=== PATIENT | female | born 1950 | race Caucasian/White ===

== ENCOUNTER → 2019-09-07 | Day surgery (SDC) | payer MEDICARE ==
[2019-09-02 11:45] LABS: BASOPHILS # (AUTO) 0.1 (0.0-0.1); EOSINOPHILS # (AUTO) 0.3 (0.0-0.4); EOSINOPHILS % 5.6 % (0.0-6.0); HEMATOCRIT 34.7 % (34.2-44.1); HEMOGLOBIN 10.7 g/dL (12.0-16.0); LYMPHOCYTES # (AUTO) 1.4 (1.0-3.2); LYMPHOCYTES % 27.4 % (18.0-39.1); MEAN CORPUSCULAR HEMOGLOBIN 24.8 pg (28-32); MEAN CORPUSCULAR HGB CONC 30.8 g/dL (31-35); MEAN CORPUSCULAR VOLUME 80.3 fL (81-99); MONOCYTES # (AUTO) 0.4 (0.2-0.8); MONOCYTES % 8.4 % (4.4-11.3); NEUTROPHILS # (AUTO) 2.9 (2.1-6.9); PLATELET COUNT 274 x10e3/uL (140-360); RED BLOOD COUNT 4.32 x10e6/uL (3.6-5.1)
[2019-09-02 12:03] LABS: CALCIUM 9.1 mg/dL (8.4-10.2); CREATININE, SERUM 0.93 mg/dL (0.57-1.11)
--- NOTE | 2019-09-02 12:14 | Diagnostic Imaging Report ---
EXAMINATION: CHEST 2 VIEWS INDICATION: Pre-operative COMPARISON: None FINDINGS: LINES/TUBES:None LUNGS:The lungs are mildly hyperinflated. No focal consolidation or pulmonary edema. PLEURA:No pleural effusion or pneumothorax. MEDIASTINUM:The cardiomediastinal silhouette appears normal in size and shape. BONES/SOFT TISSUES:No acute osseous injury. Degenerative changes of the visualized spine. Partially visualized right shoulder arthroplasty hardware. Cervical spine fusion hardware. ABDOMEN:No free air under the diaphragm. IMPRESSION: No focal pneumonia or pulmonary edema. Signed by: Roz Angulo MD on 09/02/2019 12:11 PM
[~2019-09-07] MED LIST: ACETAMINOPHEN 1000 MG/100 ML 100 ML IV ONE; ACETAMINOPHEN/CODEINE 300MG - 30MG TAB ONE; BACITRACIN 50,000 UNIT VIAL ONE; BUPIVACAINE HCL 0.5% INJ 30 ML VIAL INJ ONE; CEFAZOLIN SOD 1 GM/NS 50ML 100 ML IV ONE; DEXAMETHASONE SOD PHOS INJ 4 MG/ML VIAL ONE; FENTANYL CITRATE/PF 100MCG/2 ML INJ ONE; GLIMEPIRIDE2 MG PO; HYDROMORPHONE 2MG/ML 2 MG/ML ML ONE; INSULIN REGULAR, HUMAN 100 UNIT/1 ML 3ML VIAL ONE; KETOROLAC TROMETHAMINE 30 MG/ML VIAL ONE; LIDOCAINE HCL 2% LOCAL INJ 5 ML SDV VIAL INJ ONE; MELOXICAM7.5 MG PO; MIDAZOLAM HCL 2 MG/2 ML VIAL ONE; MORPHINE SULFATE INJ 4 MG/ML INJ 1ML ONE; OMEPRAZOLE40 MG PO; ONDANSETRON HCL INJ 2MG/ML 2ML 2 MG/ML VIAL ONE; PROPOFOL IV EMULSION 10 MG/ML 20 ML VIAL ONE; ROPINIROLE HCL1 MG PO; SERTRALINE HCL100 MG PO; SEVOFLURANE INHAL SOLN 250 ML PEN BTL ONE; SPIRONOLACTONE25 MG PO
--- OUTSIDE RECORDS SUMMARY | 2019-09-07 11:29 | XMS REPORT ---
Author Author [facility] Address Unknown Phone Unavailable Care Team Providers [employer] Person Name Role Phone LIONEL KNIGHT Unavailable Unavailable Problems This patient has no known problems. Allergies, Adverse Reactions, Alerts This patient has no known allergies or adverse reactions. Medications This patient has no known medications. Results Test Description Test Time Test Comments Text Results Atomic Results Result Comments CHEST 2 VIEWS 2019-09-02 12:09:00 [facility] [address] [place] [address] Patient Name: JOMAR NARVAEZ MR #: [id number] : 1950 Age/Sex: 68/F Req #: [id number] [facility] Physician: Ordered by: LIONEL KNIGHT MD Report #: [id number] Location: OR Room/Bed: Procedure: [id number] DX/CHEST 2 VIEWS Exam Date: Exam Time: REPORT STATUS: Signed EXAMINATION: CHEST 2 VIEWS INDICATION: Pre-operative COMPARISON: None FINDINGS: LINES/TUBES:None LUNGS:The lungs are mildly hyperinflated. No focal consolidation or pulmonary edema. PLEURA:No pleural effusion or pneumothorax. MEDIASTINUM:The cardiomediastinal silhouette appears normal in size and shape. BONES/SOFT TISSUES:No acute osseous injury. Degenerative changes of the visualized spine. Partially visualized right shoulder arthroplasty hardware. Cervical spine fusion hardware. ABDOMEN:No free air under the diaphragm. IMPRESSION: No focal pneumonia or pulmonary edema. Signed by: Lorenzo Angulo MD on 09/02/2019 12:11 PM Dictated By: LORENZO ANGULO MD 1211 Transcribed By: ANUJ on 09/02/19 1211 COPY TO: LIONEL KNIGHT MD
[2019-09-07 15:25] VITALS: BP 129/65
--- NOTE | 2019-09-09 14:21 | Operative Report ---
DATE OF PROCEDURE: 09/07/2019 SURGEON: Kendall Renner MD PREOPERATIVE DIAGNOSIS: Displaced left distal radius fracture. POSTOPERATIVE DIAGNOSIS: Displaced left distal radius fracture. OPERATION AND PROCEDURE PERFORMED: The patient underwent an open reduction and internal fixation of the left distal radius fracture with a dorsal locking plate. SKEIN YARD DRIER: There was no photographer assistant. ANESTHESIA: General endotracheal intubation anesthesia. IV FLUIDS: Per anesthesia record. BRIEF DESCRIPTION OF THE PATIENT'S OPERATIVE PROCEDURE: Ms. Krishnamurthy was taken to the operating room and placed in the supine position on the operating table. Following induction of general anesthesia as well as endotracheal intubation, the patient's left upper extremity was examined under anesthesia. She was found to have bruising and ecchymosis involving the left wrist joint. There was also an obvious deformity at the level of the wrist. Fluoroscopic evaluation of the wrist joint demonstrated a comminuted and dorsally displaced distal radius fracture. The patient's upper extremity was prepped and draped in standard surgical fashion. Attempts were made to reduce this patient's fracture in a closed fashion. This, however, did not result in acceptable realignment of the injury. The patient continued to have significant dorsal displacement of her fracture fragments. An incision was therefore created on the dorsum of the wrist. This incision was carried through the skin only. Blunt dissection was used to deepen the incision to the extensor compartments. The 4th dorsal extensor compartment was opened revealing the patient's fracture. The fracture fragments were realigned under direct vision. The wound was copiously irrigated. The 3rd dorsal wrist compartment was also opened and the thumb extensor was translated out of the 3rd compartment. A plate was chosen and contoured to the dorsum of the wrist. This plate was then affixed to the wrist with locking screws. The position of the plate as well as reduction of fracture was then assessed using fluoroscopy and marked improvement in the alignment of the wrist was identified. The wound was again copiously irrigated. The 4th dorsal wrist extensor compartment was closed loosely. The remaining soft tissues were closed in a multilayer fashion. Sterile dressings were applied and the patient was placed in a sugar-tong splint. She was awakened and taken to the postanesthesia care in a stable condition. Kendall Renner MD EBR/MODL /[id number]
== END | disposition home or self-care (01) ==
LOC: OR 11:27
PROVIDERS: ATTEND Specialist
DX: S52.532A Colles' fracture of left radius, initial encounter for closed fracture (principal); E11.9 Type 2 diabetes mellitus without complications; K29.70 Gastritis, unspecified, without bleeding; Z96.649 Presence of unspecified artificial hip joint; Z96.619 Presence of unspecified artificial shoulder joint; Z87.891 Personal history of nicotine dependence; Z83.3 Family history of diabetes mellitus; Z79.84 Long term (current) use of oral hypoglycemic drugs; Z01.810 Encounter for preprocedural cardiovascular examination; Z01.812 Encounter for preprocedural laboratory examination; Z01.811 Encounter for preprocedural respiratory examination
CPT/HCPCS: 25607; 36415 ×2; 71046; 80048; 82948; 85025; 93005; J0131; J0690; J1100; J1170; J1885; J2001; J2250; J2270; J2405; J2704; J3010; J1817